=== PATIENT | male | born 1960 | race Caucasian/White ===

== ENCOUNTER 2017-12-25 17:50 | Emergency (ER) | payer MEDICAID ==
[~2017-12-25] VITALS: Ht 193 cm; Wt 167.3 kg
[~2017-12-25 17:50] MED LIST: CLIN-79 PO; TES100C PO
[2017-12-25 18:26] LABS: BASOPHILS % (AUTO) 0.4 % (0-1); EOSINOPHILS # (AUTO) 0.3 X10'3 (0-0.9); HEMATOCRIT 38.9 % (42.0-52.0); HEMOGLOBIN 13.3 g/dl (14.0-17.9); LYMPHOCYTES # (AUTO) 3.3 X10'3 (1.1-4.8); LYMPHOCYTES % (AUTO) 35.4 % (21-51); MEAN CORPUSCULAR HEMOGLOBIN 33.3 PG (27.0-31.0); MEAN CORPUSCULAR HGB CONC 34.2 % (33.0-36.5); MEAN CORPUSCULAR VOLUME 97.1 FL (78-98); MONOCYTES # (AUTO) 0.5 X10'3 (0-0.9); MONOCYTES % (AUTO) 5.7 % (2-12); NEUTROPHILS # (AUTO) 5.2 X10'3 (1.8-7.7); NEUTROPHILS % (AUTO) 55.5 % (42-75); PLATELET COUNT 133 X10'3 (140-440); RED BLOOD COUNT 4.01 X10'6 (4.70-6.10); RED CELL DISTRIBUTION WIDTH 14.2 % (11.5-14.5); WHITE BLOOD COUNT 9.4 X10'3 (4.5-11.0)
[2017-12-25] MEDS ORDERED: normal saline 1000ML IV soln IVB ONE (18:30)
[2017-12-25] MEDS ORDERED: ketorolac trometh. 30mg/ml inj. IV ONE (18:30)
[2017-12-25] MEDS ORDERED: mag hydrox/Alum hydrox/simeth 30ml oral suspension PO ONE (18:30)
[2017-12-25] MEDS ORDERED: LIDOcaine Viscous 15ml cup PO ONE (18:30)
[2017-12-25] MEDS ORDERED: sucralfate 1gm/10ml UD suspension PO STA (18:30)
[2017-12-25] MEDS ORDERED: ondansetron/PF 4mg/2ml inj IV ONE (18:30)
[2017-12-25 18:35] LABS: INR 1.1 INR; PROTHROMBIN TIME 11.4 SECONDS (9.0-12.0)
[2017-12-25 18:42] LABS: ALANINE AMINOTRANSFERASE 167 U/L (12-78); ALBUMIN 3.3 G/DL (3.4-5.0); ALBUMIN/GLOBULIN RATIO 0.6 (1.1-1.5); ALKALINE PHOSPHATASE 101 IU/L (46-116); ANION GAP 11 (8-16); ASPARTATE AMINO TRANSFERASE 135 U/L (10-37); BILIRUBIN,TOTAL 1.1 MG/DL (0.1-1.0); BLOOD UREA NITROGEN 22 MG/DL (7-18); CALCIUM 9.7 MG/DL (8.5-10.1); CHLORIDE 101 MMOL/L (99-107); CREATININE 0.88 MG/DL (0.60-1.10); POTASSIUM 3.4 MMOL/L (3.5-5.1); SODIUM 138 MMOL/L (135-145); TOTAL CARBON DIOXIDE 25.6 MMOL/L (24-32); TOTAL PROTEIN 8.4 G/DL (6.4-8.2); eGFR 89 ML/MIN
[2017-12-25 18:57] LABS: GLUCOSE 191 MG/DL (70-104)
[2017-12-25 19:02] LABS: LIPASE 182 U/L (73-393)
[2017-12-25 19:05] LABS: ETHANOL < 0.010 GM/DL (0.0-0.010)
[2017-12-25 19:56] LABS: URINE AMPHETAMINE SCREEN NEGATIVE (Neg); URINE BARBITUATE SCREEN NEGATIVE (Neg); URINE BENZODIAZEPINES SCREEN NEGATIVE (Neg); URINE CANNABINOID SCREEN NEGATIVE (Neg); URINE COCAINE SCREEN NEGATIVE (Neg); URINE METHADONE SCREEN NEGATIVE (Neg); URINE OPIATE SCREEN NEGATIVE (Neg); URINE PHENCYCLIDINE SCREEN NEGATIVE (Neg)
[2017-12-25 19:58] LABS: CLARITY,URINE CLEAR (Clear); COLOR,URINE AMBER (Yellow); GLUCOSE, URINE NEGATIVE (Neg); KETONES,URINE NEGATIVE (Neg); LEUKOCYTE ESTERASE ,URINE NEGATIVE (Neg); NITRITES, URINE NEGATIVE (Neg); OCCULT BLOOD,URINE NEGATIVE (Neg); PH,URINE 6.5 (4.8-8.0); PROTEIN,URINE 30 mg/dl (Neg)
[2017-12-25 19:59] LABS: UA COLLECTION TYPE CLN CATCH MIDSTREAM
[2017-12-25 20:09] LABS: BACTERIA,URINE FEW /HPF (Neg); MUCUS STRANDS FEW /LPF (Neg); RBC,URINE 0-2 /HPF (0-2); SQUAMOUS EPITHELIAL CELL,UR FEW /LPF (FEW); WBC,URINE 0-4 /HPF (0-4)
[2017-12-25 21:19] VITALS: BP 131/87
== END 2017-12-25 21:23 | disposition home or self-care (01) ==
LOC: ER 17:51
DX: R10.10 Upper abdominal pain, unspecified (principal); R11.0 Nausea; F17.200 Nicotine dependence, unspecified, uncomplicated; Z56.0 Unemployment, unspecified; Z79.899 Other long term (current) drug therapy
CPT/HCPCS: 36415; 80053; 80305; 80320; 81001; 83690; 85025; 85610; 93005; 96374; 96375; 99285; J1885; J2405; J7030

== ENCOUNTER 2024-09-08 11:56 | Inpatient (IN) | payer MEDICAID ==
[~2024-09-08] VITALS: Ht 193 cm; Wt 152.9 kg
[~2024-09-08 11:56] MED LIST changes: +CLIN-214 PO; -CLIN-79 PO
[2024-09-08] MEDS ORDERED: CefTRIAXone 2gm/D5W 50ml BAG 50 ML IV ONE (14:15)
[2024-09-08] MEDS ORDERED: cefazolin 2gm/D5W 100mL 100 ML IV ONE (14:20)
[2024-09-08 14:51] LABS: BASOPHILS % (AUTO) 0.2 % (0-1); EOSINOPHILS # (AUTO) 0.1 X10'3 (0-0.9); EOSINOPHILS % (AUTO) 0.8 % (0-6); HEMATOCRIT 35.8 % (42.0-52.0); HEMOGLOBIN 12.6 g/dl (14.0-17.9); LYMPHOCYTES # (AUTO) 1.4 X10'3 (1.1-4.8); LYMPHOCYTES % (AUTO) 17.7 % (21-51); MEAN CORPUSCULAR HEMOGLOBIN 31.3 PG (27.0-31.0); MEAN CORPUSCULAR HGB CONC 35.1 g/dL (33.0-36.5); MEAN CORPUSCULAR VOLUME 89.3 FL (78-98); MEAN PLATELET VOLUME 8.2 FL (7.4-10.4); MONOCYTES # (AUTO) 0.8 X10'3 (0-0.9); MONOCYTES % (AUTO) 10.2 % (2-12); NEUTROPHILS # (AUTO) 5.5 X10'3 (1.8-7.7); NEUTROPHILS % (AUTO) 71.1 % (42-75); PLATELET COUNT 124 X10'3 (140-440); RED BLOOD COUNT 4.02 X10'6 (4.70-6.10); RED CELL DISTRIBUTION WIDTH 13.1 % (11.5-14.5); WHITE BLOOD COUNT 7.7 X10'3 (4.5-11.0)
[2024-09-08] MEDS: ceFAZolin 2gm in dextrose, iso 50 ML IV ONE (15:05)
[2024-09-08 15:19] LABS: ALANINE AMINOTRANSFERASE 29 U/L (12-78); ALBUMIN 3.2 G/DL (3.4-5.0); ALBUMIN/GLOBULIN RATIO 0.6 (1.1-1.5); ALKALINE PHOSPHATASE 50 IU/L (46-116); ANION GAP 8 (8-16); ASPARTATE AMINO TRANSFERASE 28 U/L (10-37); BILIRUBIN,DIRECT 0.3 MG/DL (0-0.3); BILIRUBIN,TOTAL 0.8 MG/DL (0.1-1.0); BLOOD UREA NITROGEN 24 MG/DL (7-18); BUN/CREATININE RATIO 29.3 (10.0-20.0); C-REACTIVE PROTEIN 16.49 MG/DL (0.0-0.5); CALCIUM 8.7 MG/DL (8.5-10.1); CHLORIDE 99 MMOL/L (99-107); CREATININE 0.82 MG/DL (0.60-1.10); GLUCOSE 98 MG/DL (70-104); MAGNESIUM 1.9 MG/DL (1.5-2.4); POTASSIUM 3.7 MMOL/L (3.5-5.1); SODIUM 134 MMOL/L (135-145); TOTAL CARBON DIOXIDE 27.1 MMOL/L (24-32); TOTAL PROTEIN 8.2 G/DL (6.4-8.2); eCRCL 112 ML/MIN; eGFR > 90 ML/MIN
[2024-09-08] MEDS ORDERED: vancomycin inj 2,000 MG in normal saline 500ml IV soln 500 ML IV ONE (15:35)
[2024-09-08] MEDS ORDERED: MELO-100 PO (16:10)
[2024-09-08] MEDS ORDERED: HYDR-3717 PO (16:10)
[2024-09-08] MEDS ORDERED: SEMA1PEN5 (16:10)
[2024-09-08] MEDS ORDERED: FERR325T7 (16:10)
[2024-09-08] MEDS ORDERED: NAPR-996 PO (16:10)
[2024-09-08] MEDS ORDERED: DICL100G59 TOP (16:10)
[2024-09-08] MEDS ORDERED: GABA300T28 (16:10)
[2024-09-08] MEDS ORDERED: FLO0.4C PO (16:10)
[2024-09-08] MEDS ORDERED: LURA40TA4 PO (16:10)
[2024-09-08] MEDS ORDERED: SEMA1.7P SQ (16:10)
[2024-09-08] MEDS ORDERED: BUPR1FIL20 SL (16:10)
[2024-09-08] MEDS: VANCOMYCIN 2GM/400ML H20 (PEG) 400 ML IV ONE (16:24)
[2024-09-08] MEDS ORDERED: ondansetron/PF 4mg/2ml inj IV PRN (16:55)
[2024-09-08] MEDS ORDERED: potassium Cl 40MEQ/1/2NS 520ml 520 ML IV PRN (16:55)
[2024-09-08] MEDS ORDERED: magnesium sulf-water 2g/50mL 50 ML IV PRN (16:55)
[2024-09-08] MEDS ORDERED: magnesium sulf-water 4G/100mL 100 ML IV PRN (16:55)
[2024-09-08] MEDS ORDERED: magnesium Cl slow-release 64mg tablet PO PRN (16:55)
[2024-09-08] MEDS ORDERED: acetaminophen 325mg tablet PO PRN (16:55)
[2024-09-08] MEDS ORDERED: potassium Cl 20 mEq SR tablet PO PRN ×2 (16:55)
[2024-09-08 17:50] LABS: BILIRUBIN,URINE NEGATIVE (Neg); CLARITY,URINE CLEAR (Clear); GLUCOSE, URINE NEGATIVE (Neg); KETONES,URINE TRACE mg/dl (Neg); LEUKOCYTE ESTERASE ,URINE NEGATIVE (Neg); NITRITES, URINE NEGATIVE (Neg); OCCULT BLOOD,URINE NEGATIVE (Neg); PROTEIN,URINE TRACE mg/dl (Neg)
[2024-09-08 17:54] LABS: UA COLLECTION TYPE NON-SPECIFIED
[2024-09-08 17:55] LABS: COLOR,URINE DARK YELLOW (Yellow)
[2024-09-08 17:56] LABS: BACTERIA,URINE FEW /HPF (Neg); FINE GRANULAR CAST 0-3 /LPF (NEGATIVE); MUCUS STRANDS FEW /LPF (Neg); RBC,URINE 0-2 /HPF (0-2); SQUAMOUS EPITHELIAL CELL,UR FEW /LPF (FEW); TRANSITIONAL EPI CELLS,URINE FEW /HPF; WBC,URINE 0-4 /HPF (0-4)
[2024-09-08] MEDS: normal saline 1000ml 1,000 ML IV SCH (19:37)
[2024-09-08] MEDS: K and/or MAG REPLACEMENT MC SCH (19:42)
[2024-09-09] VITALS (7 sets, daily range): BP systolic 115–128; BP diastolic 69–77; PULSE 64–91; RESP 16–18; TEMP 96.8–97.5; O2SAT 96–99
[2024-09-09 08:35] LABS: BASOPHILS % (AUTO) 0.4 % (0-1); EOSINOPHILS # (AUTO) 0.2 X10'3 (0-0.9); EOSINOPHILS % (AUTO) 3.6 % (0-6); HEMATOCRIT 34.4 % (42.0-52.0); HEMOGLOBIN 11.9 g/dl (14.0-17.9); LYMPHOCYTES # (AUTO) 1.9 X10'3 (1.1-4.8); MEAN CORPUSCULAR HEMOGLOBIN 31.1 PG (27.0-31.0); MEAN CORPUSCULAR HGB CONC 34.6 g/dL (33.0-36.5); MEAN PLATELET VOLUME 8.4 FL (7.4-10.4); MONOCYTES # (AUTO) 0.9 X10'3 (0-0.9); MONOCYTES % (AUTO) 14.8 % (2-12); NEUTROPHILS % (AUTO) 50.2 % (42-75); PLATELET COUNT 132 X10'3 (140-440); RED BLOOD COUNT 3.83 X10'6 (4.70-6.10); RED CELL DISTRIBUTION WIDTH 13.2 % (11.5-14.5)
[2024-09-09 09:14] LABS: ALBUMIN 2.6 G/DL (3.4-5.0); ANION GAP 9 (8-16); BLOOD UREA NITROGEN 21 MG/DL (7-18); BUN/CREATININE RATIO 26.6 (10.0-20.0); CALCIUM 8.3 MG/DL (8.5-10.1); CHLORIDE 100 MMOL/L (99-107); CREATININE 0.79 MG/DL (0.60-1.10); GLUCOSE 100 MG/DL (70-104); MAGNESIUM 2.2 MG/DL (1.5-2.4); POTASSIUM 3.6 MMOL/L (3.5-5.1); SODIUM 134 MMOL/L (135-145); TOTAL CARBON DIOXIDE 24.8 MMOL/L (24-32); eCRCL 116 ML/MIN; eGFR > 90 ML/MIN
[2024-09-09] MEDS ORDERED: BUPR200T30 PO (10:18)
[2024-09-09] MEDS: ceFAZolin/D5W- 1GM premix 50 ML IV SCH (13:07)
[2024-09-09] MEDS ORDERED: GABA-530 PO (19:54)
[2024-09-09] MEDS: tamsulosin 0.4mg capsule PO SCH (21:05)
[2024-09-09] MEDS: gabapentin 100mg capsule PO SCH (21:05)
[2024-09-09] MEDS: MELOXICAM 7.5 MG TABLET PO SCH (21:07)
[2024-09-09] MEDS: hydrOXYzine 10 MG tablet PO PRN (21:07)
[2024-09-09] MEDS: lurasidone 20mg tablet PO SCH (21:07)
[2024-09-09] MEDS: buPROPion SR 100mg tab PO SCH (21:11)
[2024-09-10 06:00] VITALS: BP 97/46; PULSE 66; RESP 12; TEMP 97.8; O2SAT 99
[2024-09-10 06:02] LABS: BASOPHILS % (AUTO) 0.6 % (0-1); EOSINOPHILS # (AUTO) 0.3 X10'3 (0-0.9); EOSINOPHILS % (AUTO) 5.2 % (0-6); HEMATOCRIT 33.6 % (42.0-52.0); HEMOGLOBIN 11.7 g/dl (14.0-17.9); LYMPHOCYTES # (AUTO) 2.2 X10'3 (1.1-4.8); LYMPHOCYTES % (AUTO) 42.9 % (21-51); MEAN CORPUSCULAR HEMOGLOBIN 31.5 PG (27.0-31.0); MEAN CORPUSCULAR HGB CONC 34.9 g/dL (33.0-36.5); MEAN CORPUSCULAR VOLUME 90.2 FL (78-98); MEAN PLATELET VOLUME 8.3 FL (7.4-10.4); MONOCYTES # (AUTO) 0.8 X10'3 (0-0.9); MONOCYTES % (AUTO) 15.1 % (2-12); NEUTROPHILS # (AUTO) 1.8 X10'3 (1.8-7.7); NEUTROPHILS % (AUTO) 36.2 % (42-75); PLATELET COUNT 141 X10'3 (140-440); RED BLOOD COUNT 3.73 X10'6 (4.70-6.10); RED CELL DISTRIBUTION WIDTH 13.2 % (11.5-14.5); WHITE BLOOD COUNT 5.1 X10'3 (4.5-11.0)
[2024-09-10 06:10] LABS: ALBUMIN 2.6 G/DL (3.4-5.0); ANION GAP 5 (8-16); BLOOD UREA NITROGEN 23 MG/DL (7-18); BUN/CREATININE RATIO 31.1 (10.0-20.0); CALCIUM 8.6 MG/DL (8.5-10.1); CHLORIDE 106 MMOL/L (99-107); CREATININE 0.74 MG/DL (0.60-1.10); GLUCOSE 89 MG/DL (70-104); MAGNESIUM 1.7 MG/DL (1.5-2.4); SODIUM 140 MMOL/L (135-145); TOTAL CARBON DIOXIDE 28.9 MMOL/L (24-32); eCRCL 124 ML/MIN; eGFR > 90 ML/MIN
[2024-09-10 08:00] VITALS: RESP 12; O2SAT 99
[2024-09-10 10:00] VITALS: BP 118/57; PULSE 70; RESP 17; TEMP 97.9; O2SAT 96
[2024-09-10] MEDS: buprenorphine/naloxone 8MG-2MG SUBlingual film SL ONE (10:01)
[2024-09-10] MEDS: buprenorphine/naloxone 8MG-2MG SUBlingual film SL SCH (10:01)
[2024-09-10 18:00] VITALS: BP 143/83; PULSE 72; RESP 18; TEMP 97.8; O2SAT 92
[2024-09-10 20:00] VITALS: RESP 18; O2SAT 98
[2024-09-10] MEDS: doxycycline inj 100 MG in normal saline 100ml IV soln 100 ML IV SCH (20:20)
[2024-09-10 22:00] VITALS: BP 117/67; PULSE 65; RESP 12; TEMP 98.8; O2SAT 97
[2024-09-11 06:00] VITALS: BP 135/71; PULSE 68; RESP 14; TEMP 96.6; O2SAT 95
[2024-09-11 06:12] LABS: BASOPHILS % (AUTO) 0.6 % (0-1); EOSINOPHILS # (AUTO) 0.2 X10'3 (0-0.9); HEMATOCRIT 34.8 % (42.0-52.0); HEMOGLOBIN 11.9 g/dl (14.0-17.9); LYMPHOCYTES % (AUTO) 43.3 % (21-51); MEAN CORPUSCULAR HEMOGLOBIN 30.8 PG (27.0-31.0); MEAN CORPUSCULAR HGB CONC 34.3 g/dL (33.0-36.5); MEAN CORPUSCULAR VOLUME 90.1 FL (78-98); MONOCYTES # (AUTO) 0.5 X10'3 (0-0.9); MONOCYTES % (AUTO) 11.7 % (2-12); NEUTROPHILS # (AUTO) 1.8 X10'3 (1.8-7.7); NEUTROPHILS % (AUTO) 39.4 % (42-75); PLATELET COUNT 148 X10'3 (140-440); RED BLOOD COUNT 3.86 X10'6 (4.70-6.10); RED CELL DISTRIBUTION WIDTH 13.3 % (11.5-14.5); WHITE BLOOD COUNT 4.7 X10'3 (4.5-11.0)
[2024-09-11 06:26] LABS: ALBUMIN 2.8 G/DL (3.4-5.0); ANION GAP 6 (8-16); BLOOD UREA NITROGEN 17 MG/DL (7-18); BUN/CREATININE RATIO 23.3 (10.0-20.0); CALCIUM 8.8 MG/DL (8.5-10.1); CHLORIDE 103 MMOL/L (99-107); CREATININE 0.73 MG/DL (0.60-1.10); GLUCOSE 98 MG/DL (70-104); MAGNESIUM 1.7 MG/DL (1.5-2.4); POTASSIUM 3.8 MMOL/L (3.5-5.1); SODIUM 137 MMOL/L (135-145); TOTAL CARBON DIOXIDE 28.2 MMOL/L (24-32); eCRCL 126 ML/MIN; eGFR > 90 ML/MIN
[2024-09-11 10:00] VITALS: BP 122/67; PULSE 66; RESP 16; TEMP 98.3; O2SAT 95
[2024-09-11] MEDS: vancomycin/NS 1 GM ADD-VANTAGE 250 ML IV SCH (12:26)
[2024-09-11] MEDS: cefepime 1GM in D5W 50mL 50 ML IV SCH (15:37)
[2024-09-11 18:00] VITALS: BP 132/74; PULSE 65; RESP 18; TEMP 97.6; O2SAT 97
[2024-09-11 20:00] VITALS: RESP 18; O2SAT 98
[2024-09-11 22:00] VITALS: BP 120/67; PULSE 64; RESP 18; TEMP 97.2; O2SAT 96
[2024-09-12] VITALS (8 sets, daily range): BP systolic 118–136; BP diastolic 63–83; PULSE 63–73; RESP 14–18; TEMP 96.8–98.6; O2SAT 94–99
[2024-09-12 06:24] LABS: ALBUMIN 2.9 G/DL (3.4-5.0); ANION GAP 4 (8-16); BLOOD UREA NITROGEN 12 MG/DL (7-18); BUN/CREATININE RATIO 18.5 (10.0-20.0); CALCIUM 8.8 MG/DL (8.5-10.1); CHLORIDE 105 MMOL/L (99-107); CREATININE 0.65 MG/DL (0.60-1.10); GLUCOSE 92 MG/DL (70-104); MAGNESIUM 1.5 MG/DL (1.5-2.4); POTASSIUM 4.1 MMOL/L (3.5-5.1); SODIUM 139 MMOL/L (135-145); TOTAL CARBON DIOXIDE 29.9 MMOL/L (24-32); eCRCL 141 ML/MIN; eGFR > 90 ML/MIN
[2024-09-12 06:32] LABS: BASOPHILS % (AUTO) 0.4 % (0-1); EOSINOPHILS # (AUTO) 0.2 X10'3 (0-0.9); EOSINOPHILS % (AUTO) 3.8 % (0-6); HEMATOCRIT 34.4 % (42.0-52.0); HEMOGLOBIN 11.8 g/dl (14.0-17.9); LYMPHOCYTES # (AUTO) 2.3 X10'3 (1.1-4.8); LYMPHOCYTES % (AUTO) 39.8 % (21-51); MEAN CORPUSCULAR HEMOGLOBIN 30.8 PG (27.0-31.0); MEAN CORPUSCULAR HGB CONC 34.3 g/dL (33.0-36.5); MEAN CORPUSCULAR VOLUME 89.8 FL (78-98); MONOCYTES # (AUTO) 0.6 X10'3 (0-0.9); MONOCYTES % (AUTO) 10.4 % (2-12); NEUTROPHILS # (AUTO) 2.6 X10'3 (1.8-7.7); NEUTROPHILS % (AUTO) 45.6 % (42-75); PLATELET COUNT 163 X10'3 (140-440); RED BLOOD COUNT 3.84 X10'6 (4.70-6.10); RED CELL DISTRIBUTION WIDTH 13.6 % (11.5-14.5); WHITE BLOOD COUNT 5.8 X10'3 (4.5-11.0)
[2024-09-12] MEDS: VANCOMYCIN LEVEL IV ONE (11:30)
[2024-09-12] MEDS: magnesium hydroxide 30ml (MOM) UD suspension PO ONE (13:06)
[2024-09-12] MEDS: docusate sod 100mg capsule PO SCH (19:28)
[2024-09-12] MEDS: VANCOMYCIN 1.75GM/WATER FOR INJ (PEG) 350 ML IVPB IV SCH (19:29)
[2024-09-13 05:14] LABS: BASOPHILS % (AUTO) 0.5 % (0-1); EOSINOPHILS # (AUTO) 0.2 X10'3 (0-0.9); EOSINOPHILS % (AUTO) 3.6 % (0-6); HEMATOCRIT 33.8 % (42.0-52.0); HEMOGLOBIN 11.8 g/dl (14.0-17.9); LYMPHOCYTES # (AUTO) 2.7 X10'3 (1.1-4.8); LYMPHOCYTES % (AUTO) 40.7 % (21-51); MEAN CORPUSCULAR HEMOGLOBIN 31.5 PG (27.0-31.0); MEAN PLATELET VOLUME 7.9 FL (7.4-10.4); MONOCYTES # (AUTO) 0.7 X10'3 (0-0.9); NEUTROPHILS % (AUTO) 45.2 % (42-75); PLATELET COUNT 180 X10'3 (140-440); RED BLOOD COUNT 3.76 X10'6 (4.70-6.10); RED CELL DISTRIBUTION WIDTH 13.1 % (11.5-14.5); WHITE BLOOD COUNT 6.6 X10'3 (4.5-11.0)
[2024-09-13 05:27] LABS: ANION GAP 2 (8-16); BLOOD UREA NITROGEN 11 MG/DL (7-18); BUN/CREATININE RATIO 16.9 (10.0-20.0); CHLORIDE 103 MMOL/L (99-107); CREATININE 0.65 MG/DL (0.60-1.10); GLUCOSE 92 MG/DL (70-104); SODIUM 139 MMOL/L (135-145); TOTAL CARBON DIOXIDE 33.6 MMOL/L (24-32); eCRCL 141 ML/MIN; eGFR > 90 ML/MIN
[2024-09-13 05:32] LABS: POTASSIUM 4.3 MMOL/L (3.5-5.1)
[2024-09-13 06:00] VITALS: BP 133/79; PULSE 68; RESP 18; TEMP 97.8; O2SAT 94
[2024-09-13 08:00] VITALS: RESP 18; O2SAT 96
[2024-09-13 10:00] VITALS: BP 131/71; PULSE 70; RESP 18; TEMP 97.7; O2SAT 98
[2024-09-13 18:00] VITALS: BP 143/68; PULSE 72; RESP 15; TEMP 97.3; O2SAT 96
[2024-09-13 20:00] VITALS: RESP 16; O2SAT 96
[2024-09-13 22:00] VITALS: BP 151/78; PULSE 108; RESP 16; TEMP 97.8; O2SAT 93
[2024-09-14 06:00] VITALS: BP 120/81; PULSE 73; RESP 18; TEMP 97.6; O2SAT 92
[2024-09-14] MEDS: VANCOMYCIN LEVEL IV ONE (07:30)
[2024-09-14 09:27] VITALS: RESP 18; O2SAT 92
[2024-09-14 10:00] VITALS: BP 118/67; PULSE 63; RESP 18; TEMP 98.6; O2SAT 96
[2024-09-14] MEDS ORDERED: LINE600T11 PO (11:48)
== END 2024-09-14 12:45 | disposition home or self-care (01) | DRG 383 ==
LOC: ER 11:56 → ED HOLD 16:56 → SUR 3N 09-09 06:50
PROVIDERS: ADMIT Internal Medicine; ATTEND Internal Medicine
DX: L03.115 Cellulitis of right lower limb (principal); F11.90 Opioid use, unspecified, uncomplicated; F32.A Depression, unspecified; N40.0 Benign prostatic hyperplasia without lower urinary tract symptoms
CPT/HCPCS: 36415; 71045; 80048; 80076; 80202; 81001; 83605; 83735; 84145; 84484; 85025; 86140; 87040; 87081; 93005; 93971; 99285; A6258; G0378; J0690; J0692; J3370; J3372; J3490; J7030